=== PATIENT | male | born 1945 | race Caucasian/White ===

== ENCOUNTER → 2023-04-30 08:45 | Outpatient (REF) | payer OTHER, SELFPAY | LOC: RAD 08:45 | PROVIDERS: ATTENDING PHYSICIAN Surgery; FAMILY PHYSICIAN Family Medicine | DX: K63.89 Other specified diseases of intestine (principal) | CPT/HCPCS: 71260; 74177; Q9967 ==

== ENCOUNTER 2024-09-21 00:41 | Observation (INO) | payer OTHER, SELFPAY ==
[2024-09-20 20:30] VITALS: BP 158/76
[2024-09-20 21:56] VITALS: BP 157/79
[2024-09-20 22:06] LABS: % Basophils 0.4 % (0-2); % Eosinophils 0.5 % (0-6); % Immature Granulocytes 0.2 % (0-0.5); % Monocytes 8.6 % (1.7-9.3); % Neutrophils 82.3 % (42.2-75.2); Absolute Lymphocytes 0.7 10^3/uL (1.2-3.4); Absolute Monocytes 0.7 10^3/uL (0.1-0.6); Absolute Neutrophils 6.8 10^3/uL (1.4-6.5); Hematocrit 41.3 % (39.0-52.0); Hemoglobin 14.9 g/dL (13.0-18.0); Mean Corp Hgb Conc. 36.1 g/dL (33.0-37.0); Mean Corpuscular Hgb 34.3 pg (27.0-31.0); Mean Corpuscular Volume 94.9 fL (80.0-94.0); Mean Platelet Volume 9.5 fL (7.4-10.4); Nucleated Red Blood Cells % 0 % (-); Platelet Count 142 10^3/uL (130-400); Red Blood Cell Count 4.35 10^6/uL (4.70-6.10); Red Cell Dist. Width 13.4 % (11.5-14.5); White Blood Cell Count 8.3 10^3/uL (4.8-10.8)
[2024-09-20 22:09] LABS: Urine Albumin 2+ (Neg - Trace); Urine Bilirubin Negative (Negative); Urine Character Clear (Clear); Urine Color Yellow; Urine Glucose 4+ (Negative); Urine Ketone 1+ (Negative); Urine Leukocyte Negative (Negative); Urine Nitrite Negative (Negative); Urine Occult Blood 1+ (Negative); Urine Specific Gravity 1.015 (<1.030); Urine Urobilinogen Negative (Neg - 1+)
[2024-09-20 22:14] LABS: COVID-19 Antigen Negative (Negative)
[2024-09-20 22:15] LABS: Urine Bacteria Few (Negative); Urine Squamous Cell 0-2 /LPF (Few); Urine White Cell 0-2 /HPF (0-5)
[2024-09-20 22:27] LABS: ALT (SGPT) 26 U/L (0-50); AST (SGOT) 41 U/L (17-59); Albumin 4.5 g/dl (3.5-5.0); Alkaline Phosphatase 82 U/L (38-126); Blood Urea Nitrogen 18 mg/dl (9-20); Carbon Dioxide 24 mmol/L (22-30); Chloride 99 mmol/L (98-107); Glucose 169 mg/dl (70-99); Potassium 4.2 mmol/L (3.5-5.1); Sodium 131 mmol/L (135-145); Total Bilirubin 1.7 mg/dl (0.2-1.3); Total Protein 6.8 g/dl (6.3-8.2); eGFR > 60.00
--- NOTE | 2024-09-20 22:51 | ED.GENMED ---
History of Present Illness
General
Chief Complaint: Fall
Source: patient
Exam Limitations: none
Time Seen by Provider: 09/20/24 21:53
Nursing documentation reviewed up to this point in time: agreed with
History of Present Illness
History of Present Illness:
pt is a 79 y/o M
PE s/p IVC filter, no AC
sleep apnea, DM, prostate ca
here after 2 falls
unwitnessed but heard the fall and came to him, he was on the ground, denied hitting his head at first
ccalled daughters who couldn't get him up, he was too generally weak
they called 911 and ems checked him out and left
but then daughters realized he probably hit his head and were concerned; pt then fell again bruising/scraping R arm
he is now very confused, speaking nonsensically
they were unaware that he has had sore throat, fever and a cough for 2 days
he has some pain in his R wrist from abrasion, L elbow from abrasion and a bruise on L knee;
otherwise he has no pain
Past History
Past History
ED Past Medical History: None
ED Past Surgical History: None
Review of Systems
Review of Systems
Allergies reviewed?: Yes
All Other Systems: Not applicable
Phy Exam
Physical Exam
Physical Exam:
GENERAL: Alert , in no apparent distress generally weak; sleeping, arousable
head; Nontender, no masses
EYE: pupils equal and reactive
NECK: Supple
ENT: b/l TM s clear, pharynx erythematous but no tonsillar hypertrophy or exudates
CARDIAC: tachcyardic, no edema
LUNGS: Clear breath sounds bilaterally, no acute respiratory distress, no wheezes/rales/rhonchi, occ cough
ABDOMEN: Soft, without focal tenderness, no r/g, no cvat, normal bowel sounds
NEUROLOGICAL: Alert and oriented x 2; he is speaking word salad/ nonsensically;
SKIN: Warm and dry, skin intact.
MUSCULOSKELETAL: mild symmetric edema
L knee bruise and supericial abrasion
L elbow superficial abrasion
R wrist skin tear
PSYCH: Normal and appropriate interaction.
Course
Orders/Labs/Results
Orders:
Orders
09/20/24 20:[address] [CT Head W/o Iv Contrast] Urgent
Comment:
Reason For Exam: FALL HITTIING HIS HEAD
09/20/24 21:49
Complete Blood Count/With Diff Urgent
Comprehensive Metabolic Panel Urgent
09/20/24 21:57
COVID-19 Antigen Urgent
Source: Nasal Swab
Influenza A+B Rapid Molecular Urgent
[facility] Source: Nasal Swab
Specimen Description:
09/20/24 22:03
UA Reflex to Culture [Urinalysis Reflex To Culture] Urgent
Date Specimen was Collected: 09/20/24
Time Specimen was Collected: 22:02
Urine Microscopic Reflex Cult Urgent
09/20/24 22:41
CR Chest - 2 Views Urgent
Comment:
Reason For Exam: flu, confusion, fall
CR Knee - Left 4 Or More View* Urgent
Comment:
Reason For Exam: fall
09/20/24 22:49
0.9% Sodium Chloride 1000 ml [Nss] 1,000 ml IV BOLUS
Acetaminophen [Tylenol] 650 mg PO NOW STA
Oseltamivir Phosphate [Tamiflu] 75 mg PO NOW STA
09/20/24 23:33
Lactic Acid Urgent
09/21/24 00:07
Cpap [RESP] Routine
Patient to use own unit?: No
Set Pressure (cm H2O): 15
09/21/24 00:21
Admit/Transfer Patient As Directed
Co-Sign Provider:
Level of Care: Observation services
Assign to:: Medical/Surgical
Physician / Group: hospitalist
Diagnosis: Influenza A infection
PRN Pain Medication Management As Directed
May give lesser potent ordered pain med per pt: Yes
preference::
Protocol:: Medication orders for pain may be administered in a
manner that supports deferring to patient preference
when the pt is:
- Requesting an ordered lesser potent pain medication.
Least to most potent pain medications are defined
as: acetaminophen < NSAID < tramadol < opioids
(morphine, oxycodone, hydromorphone).
- Requesting a lesser dose of the same medication IF
ORDERED.
- Requesting a less intrusive route of administration
if both routes are prescribed by the provider (PO <
IV).
09/21/24 00:22
Code Status As Directed
Resuscitation Status: Full Code
09/21/24 00:45
Acetaminophen [Tylenol] 650 mg PO Q4HPRN PRN
Bisacodyl [Dulcolax] 10 mg RECTAL [id number] PRN
Docusate W/Senna [Senokot-S] 1 tablet PO BIDPRN PRN
Furosemide [Lasix] 40 mg PO BID PRN
Ipratropium/Albuterol Sulfate [Duoneb] 3 ml INH R Q4HPRN PRN
Ondansetron Injectable [Zofran] 4 mg IV Q6HPRN PRN
Polyethylene Glycol Powder [Miralax] 17 grams PO DAILYPRN PRN
Tramadol HCl [Ultram] 50 mg PO Q6HPRN PRN
09/21/24 00:45
Activity As Directed
Activity Level: With Assistance
Bedside Glucose Monitoring As Directed
Frequency: AC&HS
Vital Signs As Directed
Frequency: Per unit guidelines
Pulse Ox/cont/shift [RESP] Routine
Quantity: 1
Pt Eval And Treat Routine
Activity Level: With Assistance
DX Deep Vein Thrombosis Video Routine
09/21/24 01:00
Flush (0.9% Sodium Chloride) [Flush (Nss)] See Dose Instructions IV PER PROTOCOL
09/21/24 Breakfast
1800 calorie (15 carb) Diabetic
At Your Request: Full Participation
Levothyroxine [Synthroid] 150 mcg PO DAILY @ 0600
09/21/24 07:30
Insulin Aspart Corrective Low [Novolog Flexpen-Low Resistance] See Protocol SC AC
09/21/24 08:00
Dapagliflozin [Farxiga] 10 mg PO DAILY
Fenofibrate 145 [Tricor] 145 mg PO DAILY
Oseltamivir Phosphate [Tamiflu] 75 mg PO BID
09/21/24 20:00
Enoxaparin Sodium [Lovenox] 40 mg SC Q12
09/21/24 22:00
Pregabalin [Lyrica] 200 mg PO HS
Abnormal Lab Results
09/20/24 09/20/24
21:49 22:03
RBC 4.35 L 10^6/uL
(4.70-6.10)
MCV 94.9 H fL
(80.0-94.0)
MCH 34.3 H pg
(27.0-31.0)
Absolute Neuts (auto) 6.8 H 10^3/uL
(1.4-6.5)
Absolute Lymphs (auto) 0.7 L 10^3/uL
(1.2-3.4)
Absolute Monos (auto) 0.7 H 10^3/uL
(0.1-0.6)
Neutrophils % 82.3 H %
(42.2-75.2)
Lymphocytes % 8.0 L %
(20.5-51.1)
Sodium 131 L mmol/L
(135-145)
Glucose 169 H mg/dl
(70-99)
Total Bilirubin 1.7 H mg/dl
(0.2-1.3)
Urine Ketones 1+ A
(Negative)
Ur Occult Blood Reflex 1+ A
(Negative)
Urine RBC 3-6 A /HPF
(0-2)
Urine Bacteria (Reflex) Few A
(Negative)
Urine Glucose 4+ A
(Negative)
Urine Albumin (Reflex) 2+ A
(Neg - Trace)
09/20/24 21:49
09/20/24 21:49
Vital Signs
Initial and Last Documented VS:
Initial Vital Signs
Temp Pulse Resp BP Pulse Ox
36.6 C 110 24 158/76 94
09/20/24 20:30 09/20/24 20:30 09/20/24 20:30 09/20/24 20:30 09/20/24 20:30
Last Documented Vital Signs
Temp Pulse Resp BP Pulse Ox
37.3 C 95 20 116/59 91
09/20/24 21:56 09/21/24 00:30 09/21/24 00:30 09/21/24 00:31 09/21/24 00:31
MDM/Problems Addressed
Differential Diagnosis Includes:
flu, weakness, uti, falls, head injury
MDM/Problems Addressed:
79 y/o M h/o PE IVC filter, no AC
2 falls today, genearalized weakness
flu a+
febrile; very confused; speaking nonsensically;
family thinks he hit his head
ct neg
tylenol, ivf, tamiflu; suspect TME;
also very generally weak
*Critical Care Note
Total Time (30-74mins, 75-104mins- exclusive of procedures): Not Applicable
ED Attending Note
-
Portions of this chart may have been created with voice recognition software.� Occasional wrong word or��sound alike� substitutions may have occurred due to the inherent limitations of voice recognition software.
Discharge Plan
Departure
Patient Disposition: Admit
Date of Disposition: 09/20/24
Time of Disposition: 23:04
Presentation/result/management discussed w/ accepting MD/DO: Hospitalist
Patient with high blood pressure during this ER visit?: No
Condition: Fair
Discharge Problem:
Fever and chills, Altered mental status, Influenza A
Interventions
Interventions:
*Risk Screen - Suicide Last Done: 09/20/24 20:30
*General Assessment Last Done: 09/20/24 21:45
*Neglect/Abuse Screening Last Done: 09/20/24 20:30
*ED COVID-19 Vaccine History Last Done: 09/20/24 21:45
ED-Musculoskeletal Assessment Last Done: 09/20/24 21:51
ED- Neurological Assessment Last Done: 09/20/24 21:51
ED-Skin Assessment Last Done: 09/20/24 21:51
[2024-09-20 23:00] VITALS: BP 181/77
[2024-09-20] MEDS: TYLENOL 650 MG PO (23:25)
[2024-09-20] MEDS: TAMIFLU 75 MG PO (23:25)
[2024-09-20] MEDS: NSS 1000 IV (23:26)
--- NOTE | 2024-09-20 23:44 | HPS.HSE ---
Family Physician
-
Family Physician: Jill Burgos
Chief Complaint
-
Fall
History of Present Illness
This is a 79-year-old male with past medical history significant for prostate cancer status post radiation, diabetes, hypothyroidism, history of PE status post IVC and not anticoagulated comes into the emergency department after 2 falls at home and
found to be confused.
Patient brought in by family members. Spouse heard him fall and came to him. He was on the ground and denied hitting his head at first. Both spouse and daughter could not get him up and he appeared very weak. EMS was called. They came to check
him and found him to be generally okay. Did not request transfer to the hospital at that time. After EMS left, family remember that he probably did hit his head so they called EMS again. Stay with: EMS the patient had a second fall and
bruising/scraping his right hand. He became more confused and speaking nonsensically.
He appeared to have been in usual state of health the day before. Spouse appears to have some sinus congestion and upper respiratory symptoms. Family reports no recent history of cough, fevers, chills, sore throat or sinus congestion. Denies any
shortness of breath, nausea vomiting or diarrhea.
Patient reports some pain in his right wrist from the abrasion but otherwise denies any pain.
In the emergency department he was hypertensive to 180/77, he was satting 90% on room air. He was afebrile.
CBC was unremarkable. Electrolytes BUN/creatinine were mostly unremarkable except for a sodium of 131. UA was negative. CT of the head shows no acute infiltrates. COVID test was negative. Influenza test was positive.
Medical History
Past Medical History
Past Medical History: Reports Cancer (Prostate cancer status post radiation, colon cancer status post bowel resection), HTN, Hypercholesterolemia, Hypothyroidism, IDDM and Other (ULLY on CPAP)
Past Surgical History: Reports Bowel Resection, Orthopedic (Back surgery, and knee replacement surgery) and Other (Bariatric surgery)
Social History
Unable to obtain full social history at this time due to: Acuity
Tobacco: Non-smoker
Alcohol: None
Drug: None
Personal:
Living: With Family
Family History
Family History: Not pertinent
Allergies / Home Medications
Allergies reflects when Allergies were last updated in [facility].
Home Medications with original date entered in [facility]
Allergy/Medication List:
Allergies
Allergy/AdvReac Type Severity Reaction Status Date / Time
No Known Allergies Allergy Verified 09/20/24 20:35
Home Medications
dulaglutide 4.5 mg/0.5 mL subcutaneous pen injector (Trulicity) 4.5 mg SC RENDON Diabetes 05/27/23
empagliflozin 25 mg tablet (Jardiance) 25 mg PO DAILY Diabetes 05/27/23
fenofibrate 120 mg tablet 120 mg PO DAILY HIGH TRIGLYCERIDES 05/27/23
furosemide 40 mg tablet 40 mg PO BID PRN edema 05/27/23
insulin aspart U-100 100 unit/mL (3 mL) subcutaneous pen (Novolog FlexPen U-100 Insulin aspart) 1 sliding scale dose SC DIRECTED Diabetes 05/27/23
levothyroxine 150 mcg tablet 150 mcg PO DAILY Thyroid 05/27/23
naproxen sodium 220 mg tablet (Aleve) 440 mg PO BID INFLAMMATION 05/27/23
pregabalin 200 mg capsule (Lyrica) 200 mg PO HS Seizures 05/27/23
Review of Systems
-
Unable to obtain full review of systems at this time due to: Acuity
History Source: Patient and Family
Constitutional: Reports No Symptoms
EENT: Reports No Symptoms
Respiratory: Reports No Symptoms
Cardiac: Reports No Symptoms
Abdomen/GI: Reports No Symptoms
: Reports No Symptoms
Musculoskeletal: Reports No Symptoms
Skin: Reports No Symptoms
Neurological: Reports No Symptoms
Endocrine: Reports No Symptoms
Hematologic/Lymphatic: Reports No Symptoms
Psych: Reports No Symptoms
Physical Exam
Vital Signs
Vital Signs
Temp Pulse Resp BP Pulse Ox
99.1 F 94 28 181/77 93
09/20/24 21:56 09/20/24 23:00 09/20/24 23:00 09/20/24 23:00 09/20/24 23:00
Physical Exam
General: Well Developed, Well Nourished, Comfortable and Obese
HEENT: NormoCephalic, Anicteric, Moist mucous membranes and Atraumatic
Respiratory: Clear
Cardiac: S1/S2 and Regular Rhythm
Breast: Deferred by me
GI: Soft, Non Tender, Non Distended and Normal Bowel Sounds
Rectal: Deferred by Provider
Genito-urinary: Deferred by me
Musculoskeletal: No Clubbing, No Cyanosis and No Edema
Skin: Warm
Neuro: AO x 3 (alert and oriented to person, place and time), Nonfocal/grossly intact, Cranial Nerves Intact and Other (Devolves into non-sensical speech with complex questioning. ); No Slurred Speech or Facial Droop
Hematologic/Lymphatic: No Lymphadenopathy
Psych: Calm
Laboratory Results
-
09/20/24 21:49
09/20/24 21:49
Laboratory Results
Total Bilirubin 1.7 mg/dl (0.2-1.3) H 09/20/24 21:49
AST 41 U/L (17-59) 09/20/24 21:49
ALT 26 U/L (0-50) 09/20/24 21:49
Alkaline Phosphatase 82 U/L (38-126) 09/20/24 21:49
Data Reviewed
-
Diagnostic Radiology: Image Personally Visualized and interpreted
CT Scan: Report Reviewed by me
Lab Data: Labs Reviewed by me
Old Records: Reviewed
Impression/Plan
-
IMPRESSION:
79-year-old with past medical history of DVT PE status post IVC filter not on anticoagulation, LULY on CPAP, hyperlipidemia, history of colon cancer status post surgery, prostate cancer status post XRT and diabetes who presents to the emergency
department with weakness and confusion and found to have influenza A. He is not hypoxic. He is hemodynamically stable and afebrile at this time.
PLAN:
1. Influenza A - Influenza A with weakness and encephalopathy likely due to acute infection w/o focal neurological deficits. CT head unremarkable.
- admit to med/surg observation
- start tamiflu since < 48 hours of symptom onset
- supportive measures with antipyretics, antitussives and anti-nausea
2. LULY
- CPAP HS
3. DM II
- continue jadiance and sliding scale insulin
4. Hypothyroid
- continue levothyroxine
DVT PPX - lovenox sq
code status - full code (per prior notes, family unsure and patient unreliable).
[2024-09-20 23:58] LABS: Lactic Acid 1.4 mmol/L (0.7-2.0)
[2024-09-21] VITALS (9 sets, daily range): BP systolic 110–156; BP diastolic 49–95; PULSE 69–77; O2SAT 96; BMI 47.4
[2024-09-21] MEDS: FLUSH (NSS) 1 FLUSH IV (00:30)
[2024-09-21] MEDS: SYNTHROID 150 MCG PO (08:59)
[2024-09-21] MEDS: FARXIGA 10 MG PO (08:59)
[2024-09-21] MEDS: TAMIFLU 75 MG PO ×2 (08:59→20:47)
[2024-09-21] MEDS: TRICOR 145 MG PO (08:59)
[2024-09-21 09:05] LABS: Glucose - Point of Care 131 mg/dl (70-99)
[2024-09-21] MEDS: TYLENOL 650 MG PO (10:20)
[2024-09-21 13:21] LABS: Glucose - Point of Care 129 mg/dl (70-99)
--- NOTE | 2024-09-21 13:54 | W.PN.HOSP.TC ---
Today's Communication/Plan
-
Tamiflu
PT/OT eval
Assessment / Plan
Assessment / Plan
#Influenza A
#Weakness and confusion
#Mechanical fall x 2 at home
-Influenza A with weakness and encephalopathy likely due to acute infection w/o focal neurological deficits
-CT head without contrast on arrival was unremarkable for signs of ICH or mass effect
-Was started on Tamiflu as symptoms of cough started within the last day or so per family
-Was also started on supportive measures with antipyretics, antitussives, antinausea
-As of this morning remains on room air, now alert and oriented
-Continue Tamiflu for 5-day course
-PT/OT consult pending
#LULY
-Patient wears CPAP nightly
-No known history of significant pulmonary hypertension
#IDDM
-No known history of microvascular disease
-Home regimen includes Jardiance, Trulicity, ISS
-Remains on Jardiance and ISS with Accu-Cheks here
-Blood glucose goal 140-180
#Hypothyroidism
-Unclear etiology; Home medications include levothyroxine 150 mcg QD
-No signs or symptoms of thyroid dysfunction at this time
#H/O seizure disorder
-Home medications include pregabalin 200 mg nightly
-Unclear etiology for his seizure disorder
-Unclear whether these were partial versus generalized
#H/O PE s/p IVC filter
#H/O prostate cancer s/p XRT
#H/O colon cancer s/p partial resection
DVT prophylaxis: Subcutaneous Lovenox
Diet: Carbohydrate controlled
CODE STATUS: Full code
Disposition: Pending PT eval
Anticipated Discharge: 24 - 48 hours
Subjective/Interval History
-
Date of Service: September 21, 2024
Seen and examined at the bedside. No acute events reported overnight. AFVSS this morning
Daughter at the bedside and provided updates. Patient had 2 falls at home yesterday, was resistant to coming in until after second fall. Patient states he wants to go home today, daughter trying to encourage him for rehab.
He denies any new complaints otherwise
Objective Data
-
Vital Signs:
Vital Signs
Temp Pulse Resp BP Pulse Ox
98 F 71 18 112/52 93
09/21/24 11:53 09/21/24 13:16 09/21/24 13:16 09/21/24 13:16 09/21/24 13:16
Review of Systems
-
History Source: Patient
All other systems: Reviewed and negative
Physical Exam
-
General: Well Developed, No Apparent Distress, Comfortable and Morbidly Obese
HEENT: Normocephalic, Atraumatic, Moist Mucous Membranes and Anicteric
Respiratory: Clear to Auscultation and Non Labored Respirations
Cardiac: Regular Rhythm and S1/S2; Negative Murmur, Rub or Gallop
GI: Soft, Nontender, Nondistended and Normal Bowel Sounds
Musculoskeletal: No Clubbing, No Cyanosis, No Edema and Other (No gross deformity, no significant effusion)
Skin: Warm, Dry and Normal Turgor; Negative Rash
Neuro: AO x 3 and Nonfocal/Grossly Intact
Psych: Calm
Data Reviewed
-
Labs: Labs Reviewed by me, Discussed with Patient and Discussed with Family
[2024-09-21] MEDS: LYRICA 200 MG PO (20:47)
[2024-09-21] MEDS: LOVENOX 40 MG SC (20:47)
[2024-09-22] MEDS: SYNTHROID 150 MCG PO (05:40)
[2024-09-22 07:00] LABS: Blood Urea Nitrogen 21 mg/dl (9-20); Calcium 8.3 mg/dl (8.4-10.2); Carbon Dioxide 24 mmol/L (22-30); Chloride 101 mmol/L (98-107); Estimated Creatinine Clearance 118 ml/min; Glucose 91 mg/dl (70-99); Potassium 3.5 mmol/L (3.5-5.1); Sodium 133 mmol/L (135-145); eGFR > 60.00
[2024-09-22 07:04] LABS: % Basophils 0.5 % (0-2); % Eosinophils 2.5 % (0-6); % Immature Granulocytes 0.3 % (0-0.5); % Lymphocytes 27.7 % (20.5-51.1); % Monocytes 12.6 % (1.7-9.3); % Neutrophils 56.4 % (42.2-75.2); Absolute Eosinophils 0.1 10^3/uL (0-0.7); Absolute Monocytes 0.5 10^3/uL (0.1-0.6); Absolute Neutrophils 2.1 10^3/uL (1.4-6.5); Hemoglobin 12.5 g/dL (13.0-18.0); Mean Corp Hgb Conc. 35.7 g/dL (33.0-37.0); Mean Corpuscular Hgb 33.9 pg (27.0-31.0); Mean Corpuscular Volume 94.9 fL (80.0-94.0); Mean Platelet Volume 9.8 fL (7.4-10.4); Nucleated Red Blood Cells % 0 % (-); Platelet Count 104 10^3/uL (130-400); Red Blood Cell Count 3.69 10^6/uL (4.70-6.10); Red Cell Dist. Width 13.5 % (11.5-14.5); White Blood Cell Count 3.6 10^3/uL (4.8-10.8)
[2024-09-22 07:30] VITALS: BP 119/79
[2024-09-22] MEDS: TRICOR 145 MG PO (08:49)
[2024-09-22] MEDS: LOVENOX 40 MG SC (08:49)
[2024-09-22] MEDS: FARXIGA 10 MG PO (08:49)
[2024-09-22] MEDS: TAMIFLU 75 MG PO (08:49)
--- NOTE | 2024-09-22 11:45 | CM ---
CM met with pt and roseliar/Rika
Pt resides with spouse in a [place] with 1 [place]
Pt is independent with his ADLs, no ADs
Has a SPC and WW for use as needed, cpap at home as well
No financial insecurities
PCP- Jill Burgos
Rx- [facility]
Pt is OBS- JOSEPH verbally reviewed
Copy provided
VN recs by PT
Referral to [facility] per pt request
Family will provide supervision on dc and pt will not be home alone
Discharge Disposition- home with [facility], family transport
--- NOTE | 2024-09-22 12:16 | W.PN.HOSP.TC ---
Today's Communication/Plan
-
Tamiflu through 09/25/2024
Outpatient PT
Discharge
Assessment / Plan
Assessment / Plan
#Influenza A
#Weakness and confusion
#Mechanical fall x 2 at home
-Influenza A with weakness and encephalopathy likely due to acute infection w/o focal neurological deficits
-CT head without contrast on arrival was unremarkable for signs of ICH or mass effect
-Was started on Tamiflu as symptoms of cough started within the last day or so per family
-Was also started on supportive measures with antipyretics, antitussives, antinausea
-As of this morning remains on room air, now alert and oriented
-Continue Tamiflu for 5-day course
#LULY
-Patient wears CPAP nightly
-No known history of significant pulmonary hypertension
#IDDM
-No known history of microvascular disease
-Home regimen includes Jardiance, Trulicity, ISS
-Remains on Jardiance and ISS with Accu-Cheks here
-Blood glucose goal 140-180
#Hypothyroidism
-Unclear etiology; Home medications include levothyroxine 150 mcg QD
-No signs or symptoms of thyroid dysfunction at this time
#H/O seizure disorder
-Home medications include pregabalin 200 mg nightly
-Unclear etiology for his seizure disorder
-Unclear whether these were partial versus generalized
#H/O PE s/p IVC filter
#H/O prostate cancer s/p XRT
#H/O colon cancer s/p partial resection
DVT prophylaxis: Subcutaneous Lovenox
Diet: Carbohydrate controlled
CODE STATUS: Full code
Disposition: Home care
Anticipated Discharge: Today
Subjective/Interval History
-
Date of Service: September 22, 2024
Seen and examined at the bedside. No acute events reported overnight. AFVSS on room air
Was examined by physical therapy yesterday who recommended home care. Patient requesting discharge
States he has a bit of a cough with yellow mucus though denies any other new complaints. Denies shortness of breath, fevers or chills, chest pain
Objective Data
-
Labs:
Laboratory Results
09/22/24
06:08
WBC 3.6 L
Hgb 12.5 L
Hct 35.0 L
Plt Count 104 L D
Sodium 133 L
Potassium 3.5
Chloride 101
Carbon Dioxide 24
BUN 21 H
Creatinine 0.7
Glucose 91
Calcium 8.3 L
Vital Signs:
Vital Signs
Temp Pulse Resp BP Pulse Ox
97.3 F 88 18 119/79 94
09/22/24 07:30 09/22/24 07:30 09/22/24 07:30 09/22/24 07:30 09/22/24 07:30
I&O
09/21/24 09/22/24 09/23/24
06:59 06:59 06:59
Intake Total 420 / 420
Balance 420 / 420
Review of Systems
-
History Source: Patient
All other systems: Reviewed and negative
Physical Exam
-
General: Well Developed, No Apparent Distress, Comfortable and Morbidly Obese
HEENT: Normocephalic, Atraumatic, Moist Mucous Membranes and Anicteric
Respiratory: Clear to Auscultation and Non Labored Respirations; Negative Wheezes, Rales or Rhonchi
Cardiac: Regular Rhythm and S1/S2; Negative Murmur, Rub or Gallop
GI: Soft, Nontender, Nondistended and Normal Bowel Sounds
Musculoskeletal: No Clubbing, No Cyanosis and No Edema
Skin: Warm, Dry and Normal Turgor; Negative Rash
Neuro: AO x 3 and Nonfocal/Grossly Intact
Psych: Calm
Data Reviewed
-
Labs: Labs Reviewed by me and Discussed with Patient
[2024-09-22 12:21] VITALS: BP 141/72
--- NOTE | 2024-09-22 12:42 | VNURNOTE ---
Dredge Pump Operator met with patient to discuss [facility] nurse/therapy, visits, schedule and homebound status. Patient is agreeable and understands that visits at home will be 2-3 x per week to assess and teach medical management.
[facility] brochure provided with contact information. Patient is aware that [facility] will contact them for start of care in 1-2 days after discharge from .
[facility] referral completed in [facility].
--- NOTE | 2024-09-22 15:17 | W.DCSUMMARY ---
Discharge Summary
Discharge Data
Date of Admission: 09/21/24
Date of Discharge: 09/22/24
-
Pending Results: No
Hospital Course
79-year-old male with prostate cancer s/p XRT, colon cancer s/p resection, IDDM, HTN, HLD, hypothyroidism, LULY on CPAP, H/O pulmonary embolism s/p IVC filter, not on anticoagulation that presented to the hospital with weakness and 2 mechanical falls
at home and onto his knee. Upon arrival had x-ray of the left knee on which she fell without any signs of fracture. Had CT head as well without any signs of large transcortical infarction, ICH, mass effect. Chest x-ray unremarkable for any signs
of acute findings. Initial labs fairly unremarkable but did test positive for influenza A. Suspect metabolic encephalopathy due to age and influenza virus, possible component with his gabapentin. Rapidly improved and patient wanted to be
discharged on 09/21. This therapy evaluated him and he was recommended for home PT. Started on Tamiflu upon arrival, prescription provided to complete 5 days of Tamiflu total. Should have follow-up with family doctor within 1 to 2 weeks of
discharge from the hospital.
Discharge Plan
-
Patient Disposition: Home (Routine Discharge)
Discharge Diagnosis/Procedures: Influenza A
Mechanical fall
Condition: Fair
Diet: Low Fat and Diabetic, Carb Controlled
Activity: As tolerated
Driving Restrictions: No driving for 24 hours
Bathing Restrictions: None
Blood Work: None
Others Tests: None
Other Services: PT
Activity Restrictions/Additional Instructions:
Follow-up with your family doctor after discharge in the hospital. Should be seen within 1 to 2 weeks of discharge from the hospital
Instructions: Flu in adults - Discharge instructions
Referrals:
Jill Burgos DO [Family Provider] -
Additional Discharge Medication Instructions: Continue oseltamivir (Tamiflu) 75 mg through the evening of 09/25/2024
Prescriptions:
New
oseltamivir 75 mg Capsule
75 mg PO BID 3 Days Qty: 7 0RF
Continued
levothyroxine 150 mcg Tablet
150 mcg PO DAILY
insulin aspart U-100 [Novolog FlexPen U-100 Insulin] 100 unit/mL (3 mL) Insulin Pen
1 sliding scale dose SC AC
Jardiance 25 mg Tablet
25 mg PO DAILY
Mounjaro 12.5 mg/0.5 mL pen injector
12.5 mg SC RENDON
furosemide 20 mg tablet
20 mg PO DAILYPRN PRN (Reason: FLUID OVERLOAD)
fenofibrate 160 mg tablet
160 mg PO DAILY
pregabalin 300 mg capsule
300 mg PO TID
Discharge Orders:
Discharge Patient (As Directed); Ordered 09/22/24
Ordered By: César Bah
Discharge Date and Time
Discharge Date/Time: 09/22/24 13:11
Print Language: ITALIAN
== END 2024-09-22 13:11 | disposition home health service (06) ==
LOC: 1 ACUTE 00:41
PROVIDERS: Physician Assistant; ADMITTING PHYSICIAN Internal Medicine; ATTENDING PHYSICIAN Internal Medicine; EMERGENCY PHYSICIAN Emergency Medicine; FAMILY PHYSICIAN Family Medicine
DX: J10.1 Influenza due to other identified influenza virus with other respiratory manifestations (principal); R53.1 Weakness; G93.40 Encephalopathy, unspecified; E11.9 Type 2 diabetes mellitus without complications; G47.33 Obstructive sleep apnea (adult) (pediatric); E03.9 Hypothyroidism, unspecified; R41.0 Disorientation, unspecified; M11.011 Hydroxyapatite deposition disease, right shoulder; I10 Essential (primary) hypertension; E78.00 Pure hypercholesterolemia, unspecified; S80.02XA Contusion of left knee, initial encounter; W19.XXXA Unspecified fall, initial encounter; Y93.9 Activity, unspecified; Y92.009 Unspecified place in unspecified non-institutional (private) residence as the place of occurrence of the external cause; M25.522 Pain in left elbow; M25.531 Pain in right wrist; R50.9 Fever, unspecified; G40.909 Epilepsy, unspecified, not intractable, without status epilepticus; R05.9 Cough, unspecified; Z85.46 Personal history of malignant neoplasm of prostate; Z95.828 Presence of other vascular implants and grafts; Z11.52 Encounter for screening for COVID-19; Z79.84 Long term (current) use of oral hypoglycemic drugs; Z86.711 Personal history of pulmonary embolism; Z92.3 Personal history of irradiation; Z85.038 Personal history of other malignant neoplasm of large intestine; Z79.890 Hormone replacement therapy; Z79.4 Long term (current) use of insulin; Z96.652 Presence of left artificial knee joint; Z86.718 Personal history of other venous thrombosis and embolism
CPT/HCPCS: 70450; 71046; 73564; 80048; 80053; 81003; 81015; 82962; 83605; 85025; 87502; 87811; 94660; 97162; 99285; G0378

== ENCOUNTER 2025-05-05 06:17 | Day surgery (SDC) | payer OTHER, SELFPAY ==
[2025-05-05 07:40] LABS: Glucose - Point of Care 148 mg/dl (70-99)
== END 2025-05-05 09:14 | disposition home or self-care (01) ==
LOC: GI 06:17
PROVIDERS: ATTENDING PHYSICIAN Surgery
DX: Z12.11 Encounter for screening for malignant neoplasm of colon (principal); K62.89 Other specified diseases of anus and rectum; Z85.038 Personal history of other malignant neoplasm of large intestine; K62.1 Rectal polyp
CPT/HCPCS: 45380; 82962; 88305